=== PATIENT | male | born 1990 | race Caucasian/White ===

== ENCOUNTER 2016-07-15 00:25 | Emergency (ER) | payer OTHER ==
[2016-07-15] MEDS ORDERED: DEXAMETHASONE 10 MG/ML VIAL PO STA (03:12)
[2016-07-15] MEDS ORDERED: AZITHROMYCIN 250 MG TABLET PO STA (03:13)
[2016-07-15] MEDS ORDERED: BENZONATATE 100 MG CAPSULE PO STA (03:13)
[2016-07-15] MEDS ORDERED: BENZONATATE 100 MG CAPSULE PO ONE (03:17)
[2016-07-15] MEDS ORDERED: DEXAMETHASONE 10 MG/ML VIAL ONE (03:17)
[2016-07-15] MEDS ORDERED: AZITHROMYCIN 250 MG TABLET PO ONE (03:17)
== END 2016-07-15 03:50 | disposition home or self-care (01) ==
DX: H66.003 Acute suppurative otitis media without spontaneous rupture of ear drum, bilateral (principal); B34.9 Viral infection, unspecified; Z87.891 Personal history of nicotine dependence
CPT/HCPCS: 99283; A9270

== ENCOUNTER 2016-10-12 12:57 | Emergency (ER) | payer OTHER ==
[2016-10-12] MEDS ORDERED: BACITRACIN OINT TOP STA (16:25)
[2016-10-12] MEDS ORDERED: IBUPROFEN 800 MG TABLET PO STA (16:25)
[2016-10-12] MEDS ORDERED: ACETAMINOPHEN 325 MG TABLET PO STA (16:25)
[2016-10-12] MEDS ORDERED: ACETAMINOPHEN 325 MG TABLET PO ONE (16:29)
[2016-10-12] MEDS ORDERED: IBUPROFEN 800 MG TABLET PO ONE (16:29)
== END 2016-10-12 16:35 | disposition home or self-care (01) ==
DX: S80.812A Abrasion, left lower leg, initial encounter (principal); W22.8XXA Striking against or struck by other objects, initial encounter; Y99.0 Civilian activity done for income or pay; Z87.891 Personal history of nicotine dependence
CPT/HCPCS: 99282; 99283; A9270

== ENCOUNTER 2016-10-27 08:07 | Emergency (ER) | payer OTHER ==
[2016-10-27 08:23] VITALS: BP 149/85
--- NOTE | 2016-10-27 09:48 | ED Physician Documentation ---
PD HPI LOWER EXT INJURY - Stated complaint Stated Complaint: L LEG INJ - Chief complaint Chief Complaint: Ext Problem - History obtained from History obtained from: Patient - History of Present Illness PD HPI LOW EXT INJURY LOCATION: Left, Lower leg Type of injury: Fall Where injury occurred: Street Timing - onset: Last night Timing - duration: Hours Timing - details: Abrupt onset, Still present Improved by: Rest, Immobilization Worsened by: Moving, Palpating Associated symptoms: Swelling. No: Weakness, Numbness Similar symptoms before: Has not had sx before Recently seen: Not recently seen - Additional information Additional information: 25 y/o male was on his way home when he fell to the side and injured his left calf and left forearm. He has pain in the calf and is limping to walk. He was trying to work today and his calf locked up. Review of Systems Constitutional: denies: Fever Respiratory: denies: Cough GI: denies: Nausea, Vomiting : denies: Dysuria Musculoskeletal: reports: Extremity pain. denies: Neck pain, Back pain Neurologic: denies: Headache, Head injury, LOC PD PAST MEDICAL HISTORY - Past Medical History Past Medical History: Yes Cardiovascular: None Endocrine/Autoimmune: None GI: GERD - Past Surgical History Past Surgical History: No - Present Medications Home Medications: Ambulatory Orders Medication Instructions Recorded Confirmed Esomeprazole Magnesium [Nexium] 20 mg PO DAILY 07/15/16 10/12/16 - Allergies Allergies/Adverse Reactions: Allergies Allergy/AdvReac Type Severity Reaction Status Date / Time No Known Drug Allergies Allergy Verified 10/12/16 13:29 - Social History Does the pt smoke?: No Smoking Status: Former smoker Does the pt drink ETOH?: Yes Does the pt have substance abuse?: No - Immunizations Immunizations are current?: Yes - POLST Patient has POLST: No PD ED PE NORMAL - Vitals Vital signs reviewed: Yes (tachy and hypertensive) - General General: Alert and oriented X 3, No acute distress, Well developed/nourished - HEENT HEENT: Atraumatic, PERRL, EOMI - Neck Neck: Supple, no meningeal sign - Respiratory Respiratory: No respiratory distress - Back Back: No CVA TTP, No spinal TTP - Derm Derm: Normal color, Warm and dry, No rash - Extremities Extremities: No deformity, No edema. No: Other (There is some tenderness to the gastrocs on the left and there is pain with flexion/extention of the ankle and there is some mild swelling to the calf) - Neuro Neuro: No motor deficit, No sensory deficit - Psych Psych: Normal mood, Normal affect Results - Vitals Vitals: Vital Signs - 24 hr 10/27/16 08:14 Temperature 36.6 C Heart Rate 101 H Respiratory 18 Rate Blood Pressure 149/85 H O2 Saturation 97 Oxygen O2 Source Room air - Rads (name of study) left tib-fib Radiology: Prelim report reviewed (Impression: Normal tibia-fibula radiography.) , EMP read indepedently, See rad report PD MEDICAL DECISION MAKING - ED course Complexity details: considered differential, d/w patient ED course: 25 y/o male has strained the left gastrocs and has a stiff muscle he is given decadron and placed into an immobilization boot Departure - Departure Disposition: 01 Home, Self Care Clinical Impression: Muscle strain of left lower leg Qualifiers: Encounter type: initial encounter Qualified Code(s): S86.912A - Strain of unspecified muscle(s) and tendon(s) at lower leg level, left leg, initial encounter Condition: Stable Instructions: ED Strain Muscle Ext Follow-Up: Elliott Apple MD [Primary Care Provider] - Forms: Activity restrictions
--- NOTE | 2016-10-27 10:25 | XRAY Preliminary Report ---
Exam: XR Tib/Fib LT IMPRESSION: Normal tibia/fibula radiography. [facility] SITE ID: [id number]
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
[2016-10-27] MEDS ORDERED: DEXAMETHASONE 10 MG/ML VIAL PO STA (10:33)
[2016-10-27] MEDS ORDERED: DEXAMETHASONE 10 MG/ML VIAL ONE (10:34)
[2016-10-27] MEDS ORDERED: CHERRY SYRUP 10 ML UDC PO ONE (10:34)
== END 2016-10-27 10:42 | disposition home or self-care (01) ==
LOC: ED 08:07
DX: S86.812A Strain of other muscle(s) and tendon(s) at lower leg level, left leg, initial encounter (principal); S59.912A Unspecified injury of left forearm, initial encounter; V28.0XXA Motorcycle driver injured in noncollision transport accident in nontraffic accident, initial encounter; Y92.410 Unspecified street and highway as the place of occurrence of the external cause; Z87.891 Personal history of nicotine dependence
CPT/HCPCS: 73590; 99283; 99284; A9270

== ENCOUNTER 2016-11-01 21:13 | Emergency (ER) | payer OTHER ==
[2016-11-01] MEDS ORDERED: LIDOCAINE 2% 10 ML MDV ONE (21:21)
--- NOTE | 2016-11-01 21:22 | ED Physician Documentation ---
PD HPI UPPER EXT INJURY - Stated complaint Stated Complaint: LT INDEX LAC - History obtained from History obtained from: Patient - History of Present Illness Location: Left, Finger (index) Where injury occurred: Home Timing - onset: How many hours ago (1) Timing - duration: Hours (1) Timing - details: Abrupt onset Pain level max: 5 Pain level now: 2 Improved by: Rest Worsened by: Moving, Palpating Associated symptoms: No: Weakness, Numbness, Tingling, Swelling Contributing factors: No: Anticoagulated, Prior ortho surgery Recently seen: Not recently seen - Additonal information Additional information: pt is right handed, NVI. Td UTD Review of Systems Neurologic: denies: Focal weakness PD PAST MEDICAL HISTORY - Past Medical History Cardiovascular: None Endocrine/Autoimmune: None GI: GERD - Past Surgical History Past Surgical History: No - Present Medications Home Medications: Ambulatory Orders Medication Instructions Recorded Confirmed Esomeprazole Magnesium [Nexium] 20 mg PO DAILY 07/15/16 11/01/16 - Allergies Allergies/Adverse Reactions: Allergies Allergy/AdvReac Type Severity Reaction Status Date / Time No Known Drug Allergies Allergy Verified 11/01/16 21:23 - Social History Does the pt smoke?: No Smoking Status: Former smoker Does the pt drink ETOH?: Yes Does the pt have substance abuse?: No - Immunizations Immunizations are current?: Yes - POLST Patient has POLST: No PD ED PE NORMAL - Vitals Vital signs reviewed: Yes - General General: Alert and oriented X 3, No acute distress - Derm Derm: Warm and dry - Extremities Extremities: Other (L index finger, 2cm, linear PIP joint, lateral aspect) - Neuro Neuro: Alert and oriented X 3 - Psych Psych: Normal mood, Normal affect Results - Vitals Vitals: Vital Signs - 24 hr 11/01/16 21:21 Temperature 36.1 C L Heart Rate 75 Respiratory 16 Rate Blood Pressure 135/75 H O2 Saturation 97 Oxygen O2 Source Room air Procedures - Laceration (location) L index finger Length in cm: 2 Wound type: Linear, Flap Neurovascular status: Sensory intact, Motor intact, Vascular intact Tendon involvement: Tendon intact Anesthesia: Lidocaine 2% Wound Preparation: Irrigated copiously NS, Wound explored, To the base Skin layer closure: Nylon, Size #-0 - enter number (4), Sutures - enter # (3) Other: Patient tolerated well, No complications, Neurovascular intact, Dressing applied, Tetanus UTD Complexity: Simple PD MEDICAL DECISION MAKING - ED course Complexity details: considered differential, d/w patient ED course: Patient is a 25-year-old male with a laceration to the left index finger. This was repaired. Tolerated well. No tendon laceration. No joint capsule laceration. Warnings of infection and instructions on wound care given at bedside. Also counseled on how to minimize scarring. Patient counseled regarding signs and symptoms for which I believe and urgent re-evaluation would be necessary. Patient with good understanding of and agreement to plan and is comfortable going home at this time This document was made in part using voice recognition software. While efforts are made to proofread this document, sound alike and grammatical errors may occur. Departure - Departure Disposition: 01 Home, Self Care Clinical Impression: Finger laceration Qualifiers: Encounter type: initial encounter Qualified Code(s): S61.219A - Laceration without foreign body of unspecified finger without damage to nail, initial encounter Condition: Good Instructions: ED Laceration Hand Follow-Up: Elliott Apple MD [Primary Care Provider] - (in 10-14 days for suture removal) Comments: Keep the wound clean. Wear the splint for the next 3 days. The sutures should be removed in 10-14 days. Return for redness, swelling, drainage or increasing pain. Discharge Date/Time: 11/01/16 21:50
[2016-11-01 21:23] VITALS: BP 135/75
[2016-11-01] MEDS: LIDOCAINE 2% 10 ML MDV SUBQ STA (21:27)
== END 2016-11-01 21:50 | disposition home or self-care (01) ==
LOC: ED 21:13
DX: S61.211A Laceration without foreign body of left index finger without damage to nail, initial encounter (principal); W45.8XXA Other foreign body or object entering through skin, initial encounter; Y92.019 Unspecified place in single-family (private) house as the place of occurrence of the external cause; K21.9 Gastro-esophageal reflux disease without esophagitis; Z87.891 Personal history of nicotine dependence
CPT/HCPCS: 12001; 99282; 99283

== ENCOUNTER 2017-03-18 19:32 | Emergency (ER) | payer OTHER ==
[2017-03-18 19:44] VITALS: BP 149/105
[2017-03-18] MEDS ORDERED: HYDROcod/ACET 5/325 Prepack 6 PO STA (20:29)
[2017-03-18] MEDS ORDERED: CYCLOBENZAPRINE 10 MG Prepack 2 PO PRN (20:29)
--- NOTE | 2017-03-18 20:33 | ED Physician Documentation ---
PD HPI BACK PAIN - Stated complaint Stated Complaint: BACK PX - Chief complaint Chief Complaint: Back Pain - History obtained from History obtained from: Patient - History of Present Illness Timing - onset: Other (He has a lot of aches and pains in his back, this is chronic. Since yesterday he has had a right mid back spasm that is quite bad especially if he flexes his neck or twists. 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 There is no radiation into the low back, buttocks, or legs. No weakness, numbness, or tingling. No saddle anesthesia. No fevers. No bowel or bladder issues.) Review of Systems Constitutional: reports: Reviewed and negative Nose: reports: Reviewed and negative Throat: reports: Reviewed and negative Cardiac: reports: Reviewed and negative PD PAST MEDICAL HISTORY - Past Medical History Past Medical History: Yes Cardiovascular: None Endocrine/Autoimmune: None GI: GERD : None Psych: None Musculoskeletal: None, Chronic back pain - Past Surgical History Past Surgical History: No - Present Medications Home Medications: Ambulatory Orders Medication Instructions Recorded Confirmed Esomeprazole Magnesium [Nexium] 20 mg PO DAILY 07/15/16 03/18/17 Cyclobenzaprine [Flexeril] 10 mg PO TID PRN #10 tablet 03/18/17 - Allergies Allergies/Adverse Reactions: Allergies Allergy/AdvReac Type Severity Reaction Status Date / Time No Known Drug Allergies Allergy Verified 03/18/17 19:39 - Social History Does the pt smoke?: No Smoking Status: Former smoker Does the pt drink ETOH?: Yes Does the pt have substance abuse?: No - Immunizations Immunizations are current?: Yes - POLST Patient has POLST: No PD ED PE NORMAL - Vitals Vital signs reviewed: Yes - General General: Alert and oriented X 3, No acute distress - Neck Neck: Supple, no meningeal sign, No bony TTP - Cardiac Cardiac: RRR, No murmur - Respiratory Respiratory: No respiratory distress, Clear bilaterally - Abdomen Abdomen: Non tender - Back Back: No spinal TTP, Other (He has a palpable tender spasm in the area of the right Lower and mid parathoracic musculature.) - Extremities Extremities: Other (The patient has equal and normal Achilles and patellar reflexes bilaterally. Normal sensation in all areas of the legs. Patient denies saddle anesthesia. Normal strength in flexion-extension at the ankles, knees, and flexion of the hips.) - Neuro Neuro: Alert and oriented X 3, Normal speech - Psych Psych: Normal mood, Normal affect Results - Vitals Vitals: Vital Signs - 24 hr 03/18/17 19:36 Temperature 36.6 C Heart Rate 72 Respiratory 18 Rate Blood Pressure 149/105 H O2 Saturation 100 Oxygen O2 Source Room air PD MEDICAL DECISION MAKING - ED course ED course: The [place] prescription monitoring program was queried with regard to this patient. No concerning findings were found. Departure - Departure Disposition: Home, Self Care Clinical Impression: Spasm of back muscles Condition: Good Record reviewed to determine appropriate education?: Yes Instructions: ED Spasm Back No Trauma Prescriptions: Cyclobenzaprine [Flexeril] 10 mg PO TID PRN #10 tablet PRN Reason: Pain Comments: Call your doctor to arrange a follow-up appointment, make the next available appointment. In the interim, return anytime if worse or if new symptoms develop. Your blood pressure was elevated today on check into the emergency department. This does not mean that you have hypertension, it is a common phenomenon to come to the emergency department and have elevated blood pressure. I recommend that she see your primary care physician within the week to have it rechecked when you are feeling better.
[2017-03-18] MEDS ORDERED: CYCLOBENZAPRINE 10 MG Prepack 2 PO ONE (20:36)
[2017-03-18] MEDS ORDERED: HYDROcod/ACET 5/325 Prepack 6 PO ONE (20:36)
== END 2017-03-18 20:36 | disposition home or self-care (01) ==
LOC: ED 19:32
DX: M62.830 Muscle spasm of back (principal); Z87.891 Personal history of nicotine dependence
CPT/HCPCS: 99283